=== PATIENT | female | born 1990 | race Caucasian/White ===

== ENCOUNTER 2025-03-12 04:57 | Emergency (ER) | payer OTHER, SELFPAY ==
--- OUTSIDE RECORDS SUMMARY | 2025-03-03 08:30 | XMS_ITS | Encounter Summary ---
Author Organization [facility] Address [address] [place] [address] Care Team Providers Care Supervisor Testing Name Role Phone Meenakshi Brooks MD Primary Care Provider [phone] Encounter Details DateTypeDepartmentCare Team (Latest Contact Info)Angcwhflwip75/15/2025 8:30 AM EDTRoutine PRECIOUS Shamrocklaura WHITAKER [facility] [place] [address] Yenni Vazquez CNM [address] [place], [place] [phone] Encounter for supervision of other normal , second trimester ([facility]) (Primary Dx); Hx of Pb thyroiditis; History of section; History of in vitro fertilization Social History Tobacco UseTypesPacks/DayYears UsedDateSmoking Tobacco: NeverSmokeless Tobacco: NeverAlcohol UseStandard Drinks/WeekCommentsNot Currently0 (1 standard drink = 0.6 oz pure alcohol)Estimated Date of BanywllxYtvmhnqzVto83/21/2026ased on UltrasoundSex and Gender InformationValueDate RecordedSex Assigned at Mvvhbv0809/11/2023 1:30 AM EDTLegal MydKslqbv96/15/2023 7:00 PM EDTGender Identity Xjpmbc3509/11/2023 1:30 AM EDTSexual OrientationNot on filedocumented as of this encounter Last Filed Vital Signs Vital SignReadingTime TakenCommentsBlood Xflwvevk169/7003/03/2025 8:28 AM EDT Pulse--Temperature--Respiratory Rate--Oxygen Saturation--Inhaled Oxygen Concentration--Pqbsnz339 kg (234 lb)03/03/2025 8:28 AM EDTHeight--Body Mass Index43.85008/02/2022 12:00 PM EDTdocumented in this encounter Progress Notes * Yenni Vazquez CNM - 03/03/2025 8:30 AM EDT Subjective No chief complaint on file. Josephine Navarrete is a 34 y.o. at 17w4d with a working estimated date of delivery of 08/07/2025, by Ultrasound who presents for a routine visit. She denies vaginal bleeding, leakage of fluid, decreased movements, or contractions. OB History Para Term AB Living 2 1 1 1 SAB IAB Ectopic Multiple Live Births 1 # Outcome Date GA Lbr Justin/2nd Weight Sex Type Anes PTL Lv 2 Current 1 Term 02/03/18 39w2d 6 lb 14.3 oz M CS-LTranv EPI N ALBERTO Complications: Dysfunctional Labor, Intolerance, heart rate decelerations affecting management of mother ([facility]) Her is complicated by: Herpes, pb's, IVF Thyroid, taking levothyroxine 125 mcg The following portions of the chart were reviewed this encounter and updated as appropriate: Objective Physical Exam Weight: 234 lb Expected Total Weight Gain: 11 lb-19 lb Pregravid BMI: 44.03 BP: 110/70 Urine protein-negative Urine glucose-negative Labs: reviewed Imaging Assessment/Plan Diagnoses and all orders for this visit: Encounter for supervision of other normal , second trimester ([facility]) Hx of Pb thyroiditis - TSH W/REFLEX TO FT4; Future History of section History of in vitro fertilization Continue vitamin. Labs reviewed. Rhogam not needed, patient is A+ positive GTT at 28 weeks Follow up in 4 weeks for a routine visit. Patient has appt with M on 03/23/25 for thyroidand IVF related documented in this encounter Plan of Treatment DateTypeDepartmentCare Team (Latest Contact Info)Gqqtxdnvlml56/12/2025 8:45 AM ESTRoutine [facility] OBM[facility] [address] [place] [address] Yenni Vazquez, CNM [address] [place] [address] documented as of this encounter Goals GoalPatient Goal TypeAssociated ProblemsRecent ProgressPatient-Stated?Author Reminders Care PlanOB RemindersNoOpen Scheduling, Backgrounddocumented as of this encounter Procedures Procedure NamePriorityDate/TimeAssociated DiagnosisCommentsTSH W/REFLEX TO FT4 Sdwujrb7603/03/2025 8:51 AM EDT Hx of Pb thyroiditis documented in this encounter Results * TSH W/REFLEX TO FT4 (03/03/2025 8:51 AM EDT)ComponentValueRef RangeTest Method Analysis TimePerformed AtPathologist SignatureTSH W/REFLEX TO FT41.02mIU/L QUESTComment: ?Reference Range ? > or = 20 Years 0.40-4.50 ? Ranges ?First trimester ?0.26-2.66 ?Second trimester ?? 0.55-2.73 ?Third trimester ?0.43-2.91 Specimen (Source)Anatomical Location / LateralityCollection Method / Volume Collection TimeReceived Time03/03/2025 8:51 AM EDT1 3:39 PM EDT Narrative Resulting Agency Comment Performing Organization Information ?Site ID: QPT ?Name: [facility] ?Address: [address] [place] [address], [address] [place] [id number] ?Director: Jose Raul Villa MD Authorizing ProviderResult TypeResult StatusValegayla Vazquez CNMLAB BLOOD ORDERABLESFinal ResultPerforming OrganizationAddressCity/State/ZIP CodePhone Number QUEST documented in this encounter Visit Diagnoses Diagnosis Encounter for supervision of other normal , second trimester ([facility])- Primary Hx of Pb thyroiditis History of section Other postprocedural status History of in vitro fertilization documented in this encounter Additional Health Concerns Active ProblemsNoted DateDiagnosed DateOB Ieyfotnim56/20/2025 documented as of this encounter Care Teams Team MemberRelationshipSpecialtyStart DateEnd Date Meenakshi Brooks MD [address] [place] [address] PCP - GeneralFamily Medicine09/25/22documented as of this encounter
[2025-03-12 05:01] VITALS: BP 139/80; PULSE 74; TEMP 36.6; O2SAT 100; BMI 42.1
--- NOTE | 2025-03-12 05:17 | ED_ITS ---
HPI - URI/Sore Throat General Chief Complaint: Upper Respiratory Infection Stated Complaint: 19 WKS ; SHORTNESS OF BREATH, WHEEZING Time Seen by Provider: 03/12/25 05:00 Source: patient Limitations: no limitations History of Present Illness HPI Narrative: 34-year-old female, non-smoker who is 19 weeks presents for evaluation of cough, wheezing, shortness of breath and loss of her voice. Symptoms started 3 days ago. She is not having any chest pain but is mildly short of breath. She denies any abdominal pain or vaginal bleeding. She does not have any lower extremity pain or swelling. Her son had similar symptoms several days ago and she believes she contracted this from him. She took a Tylenol around 1 AM. She has not had any fever. She does not smoke. Related Data Allergies Allergy/AdvReac Type Severity Reaction Status Date / Time amoxicillin Allergy Mild Hives Verified 03/12/25 05:05 Review of Systems ROS Status of ROS 10 or more systems reviewed and unremark able except as noted in history and below PFSH PFSH Social History Little interest or pleasure in doing things: not at all Feeling down, depressed, or hopeless: not at all Exam Narrative Exam Narrative: Vital signs and Nursing Notes reviewed: Afebrile with a normal pulse, normal blood pressure, she is not hypoxic with pulse ox of 100% on room air General: Awake, alert, oriented, hoarse voice, no respiratory distress HEENT: Normocephalic atraumatic, mucous membranes are moist and pink, eyes are clear, normal conjunctiva, vision is grossly intact, posterior pharynx is normal in appearance. Voice is hoarse Neck: Supple, no stridor Chest: Lungs are clear to auscultation with good air entry, there is no wheezing rhonchi or rales appreciated no accessory muscle use, patient is speaking in complete sentences-no chest wall tenderness to palpation CVS: Regular rate and rhythm S1-S2, no murmurs rubs or gallops, pulses are brisk and equal bilaterally Extremities: Moving all extremities, no lower extremity tenderness or swelling noted, negative Homans' sign, pulses are brisk and equal bilaterally Skin: Normal in appearance without rash,pallor, petechiae or purpura Neuro: No focal deficits Constitutional Vital Signs, click to edit/add: Last Vital Signs Temp 97.9 F 03/12/25 05:01 Pulse 72 03/12/25 05:32 Resp 20 03/12/25 05:32 BP 139/80 03/12/25 05:01 Pulse Ox 99 03/12/25 05:32 O2 Del Method Room Air 03/12/25 05:32 Course Vital Signs Vital signs: Vital Signs Temperature 97.9 F 03/12/25 05:01 Pulse Rate 74 03/12/25 05:01 Respiratory Rate 18 03/12/25 05:01 Blood Pressure 139/80 03/12/25 05:01 Pulse Oximetry 100 03/12/25 05:01 Oxygen Delivery Method Room Air 03/12/25 05:01 Temperature 97.9 F 03/12/25 05:01 Pulse Rate 72 03/12/25 05:32 Respiratory Rate 20 03/12/25 05:32 Blood Pressure 139/80 03/12/25 05:01 Pulse Oximetry 99 03/12/25 05:32 Oxygen Delivery Method Room Air 03/12/25 05:32 MDM - URI/Sore Throat MDM Narrative Medical decision making narrative: 34-year-old female who is 19 weeks presents for evaluation of 3 days of cough, nasal congestion voice. She has some degree of a sore throat. She feels that she is wheezing but her lungs are clear. She has not had a fever. Her son had similar symptoms earlier in the week. She is not having any abdominal pain or vaginal bleeding. She has normal heart tones. She was given a breathing treatment and Tylenol. COVID 19 testing is negative. The patient is feeling somewhat better and her voice is improved after a period in the ER and a breathing treatment. She will be discharged home with a prescription for albuterol MDI and a note for work for the next several days. She was encouraged to drink plenty of fluids, use Tylenol as needed for fever and discomfort and return to the emergency department for worsening symptoms or any concerns. I explained to her the antibiotics are not indicated and her cough may last several weeks. Lab Data Labs: Lab Results 03/12/25 Range/Units 06:11 SARS-CoV-2 Ag (CV2AG) Negative (NEGATIVE) Discharge Plan Discharge Chief Complaint: Upper Respiratory Infection Clinical Impression: Upper respiratory infection Patient Disposition: Home, Self-Care Time of Disposition Decision: 06:39 Condition: Good Print Language: Romansh Instructions: Upper Respiratory Infection (ED) Referrals: CALIXTO FUENTES [Primary Care Provider, Family Practice] - 1 week
[2025-03-12] MEDS: ACETAMINOPHEN 325 MG TABLET 650 MG PO (05:23)
[2025-03-12 05:32] VITALS: PULSE 72; O2SAT 99
[2025-03-12] MEDS: IPRATROPIUM/ALBUTEROL SULFATE 3 ML AMPUL.NEB IH (05:32)
--- OUTSIDE RECORDS SUMMARY | 2025-03-12 05:50 | XMS_ITS | Encounter Summary ---
Author Organization [facility] Address [address] [facility] [place] [address] Care Team Providers Care Biomedical Engineering Technician Name Role Phone Meenakshi Brooks MD Primary Care Provider [phone] Encounter Details DateTypeDepartmentCare Team (Latest Contact Info)Tbedxvhxcsv99/15/2025amboo flowsheet PRECIOUS WHITAKER [address] [place] [address] Yenni Vazquez CNM [address] [place], [place] [phone] Social History Tobacco UseTypesPacks/DayYears UsedDateSmoking Tobacco: NeverSmokeless Tobacco: NeverAlcohol UseStandard Drinks/WeekCommentsNot Currently0 (1 standard drink = 0.6 oz pure alcohol)Estimated Date of InenwhmjIqmmvburUrk27/21/2026Based on UltrasoundSex and Gender InformationValueDate RecordedSex Assigned at Zklfrk6209/11/2023 1:30 AM EDTLegal JmeQwjcsv56/15/2023 7:00 PM EDTGender Identity Tadxew6109/11/2023 1:30 AM EDTSexual OrientationNot on filedocumented as of this encounter Plan of Treatment DateTypeDepartmentCare Team (Latest Contact Info)Bbkzuctwppk65/12/2025 8:45 AM ESTRoutine PRECIOUS [facility] [address] [place] [address] Yenni Vazquez CNM [address] [place], [place] [phone] documented as of this encounter Goals GoalPatient Goal TypeAssociated ProblemsRecent ProgressPatient-Stated?Author Reminders Care PlanOB RemindersNoOpen Scheduling, Backgrounddocumented as of this encounter Visit Diagnoses Not on filedocumented in this encounter Additional Health Concerns Active ProblemsNoted DateDiagnosed DateOB Xevamubxx48/20/2025 documented as of this encounter Care Teams Team MemberRelationshipSpecialtyStart DateEnd Date Meenakshi Brooks MD [address] [place] [address] PCP - GeneralFamily Medicine09/25/22documented as of this encounter
--- OUTSIDE RECORDS SUMMARY | 2025-03-12 05:50 | XMS_ITS | Encounter Summary ---
Author Organization [facility] Address [address] [place] [address] Care Team Providers Care Game Programmer Name Role Phone Meenakshi Brooks MD Primary Care Provider [phone] Encounter Details DateTypeDepartmentCare Team (Latest Contact Info)Ulsmosqmshs29/14/2025Travel Social History Tobacco UseTypesPacks/DayYears UsedDateSmoking Tobacco: NeverSmokeless Tobacco: NeverAlcohol UseStandard Drinks/WeekCommentsNot Currently0 (1 standard drink = 0.6 oz pure alcohol)Estimated Date of CdvmeegnIpsiwywoNwn93/21/2026ased on UltrasoundSex and Gender InformationValueDate RecordedSex Assigned at Jwzlkq7409/11/2023 1:30 AM EDTLegal PlrXpiuog28/15/2023 7:00 PM EDTGender Identity Gqbons6409/11/2023 1:30 AM EDTSexual OrientationNot on filedocumented as of this encounter Plan of Treatment DateTypeDepartmentCare Team (Latest Contact Info)Bartguovtyc80/12/2025 8:45 AM ESTRoutine [facility] [address] [place] [phone] Yenni Vazquez CNM [address] [place] [address] documented as of this encounter Goals GoalPatient Goal TypeAssociated ProblemsRecent ProgressPatient-Stated?Author Reminders Care PlanOB RemindersNoOpen Scheduling, Backgrounddocumented as of this encounter Visit Diagnoses Not on filedocumented in this encounter Additional Health Concerns Active ProblemsNoted DateDiagnosed DateOB Quodsqhio77/20/2025 documented as of this encounter Care Teams Team MemberRelationshipSpecialtyStart DateEnd Date Meenakshi Brooks MD [address] [place] [address] PCP - GeneralFamily Medicine09/25/22documented as of this encounter
--- OUTSIDE RECORDS SUMMARY | 2025-03-12 05:50 | XMS_ITS | Clinical Summary ---
Author Organization [facility] Address [address], [address] [place] [address] Care Team Providers Care Cloth Bleaching Supervisor Name Role Phone Meenakshi Mulligan MD Primary Care Pr ovider Allergies Active AllergyReactionsCriticalityNoted GqlyKijkflnvZjqvzsuilzxPudqZez74/16/2018 Medications MedicationSigDispense QuantityRefillsLast FilledStart DateEnd DateStatus Ibmlcllh-Srp-Il-FA ( VITAMINS PO) Indications:gummyTake by mouth dailyActive calcium carbonate (TUMS) 500 MG chewable tablet Take 1 tablet by mouth as needed for HeartburnActive acetaminophen (TYLENOL) 325 MG tablet Take 2 tablets by mouth every 4 hours as needed for Pain 120 tablet Active docusate sodium (COLACE, DULCOLAX) 100 MG CAPS Take 100 mg by mouth 2 times daily 60 capsule Active lanolin ointment Apply topically as needed. 1 Tube Active ibuprofen (ADVIL;MOTRIN) 600 MG tablet Take 1 tablet by mouth every 6 hours as needed for Pain 120 tablet Active Active Problems Patient Care Coordination No te Formatting of this note migh t be different from the original. Repeat c/s on 08/03/2025 at 7:[address] Albrecht and June Vazquez to assist PAT on admission Does pt have history of delivery before 37 weeks: Previous c/s: testing: Ped: Blood type: Rhogam: Flu shot: TDAP (27-36 wks): GBS: GTT: GC/CT: 30 week Growth: MRSA: Placenta Location: ProblemNoted DateDiagnosed DateTerm ztuyddtuz06/09/2018Failure to progress in labor Resolved Problems ProblemNoted DateDiagnosed DateResolved SwpiMpvywlbqxzs10 Encounters DateTypeDepartmentCare BqyhXzfpngfdftq84/15/2025Telephone [facility] Gyne[facility] [address], [address] [place] [address] Kimberlee Villalobos RN Scheduled C-sectionfrom Last 3 Months Family History Medical HistoryRelationNameCommentsHigh Blood PressureFatherOtherFatherOther Maternal AuntHigh Blood PressureMaternal GrandfatherOtherOther 1husbandHigh Blood PressureOther 2Paternal fatherCancerPaternal GrandfatherOtherPaternal GrandfatherRelationNameStatusCommentsFatherthyroidMaternal AuntthyroidMaternal GrandfatherOther 1husbandAliveseizuresOther 2Paternal fatherAlivePaternal Grandfatherthroat cancer Social History Tobacco UseTypesPacks/DayYears UsedDateSmoking Tobacco: NeverSmokeless Tobacco: NeverAlcohol UseStandard Drinks/WeekCommentsNo0 (1 standard drink = 0.6 oz pure alcohol)social drinker before pregnancyCommentsNoSex and Gender InformationValueDate RecordedSex Assigned at BirthNot on fileLegal SexFemale 12/23/2017 10:13 PM EDTGender IdentityNot on fileSexual OrientationNot on file Last Filed Vital Signs Vital SignReadingTime TakenCommentsBlood Qxkxzbdg476/6909 7:25 AM EDT Pnipl8492 7:25 AM MZIQhckoabnevr25.7 ??C (98.1 ??F)02/06/2018 7:25 AM EDTRespiratory Ocdf3092 7:25 AM EDTOxygen Degvkglwfw52%02/05/2018 11:00 AM EDTInhaled Oxygen Concentration--Powrin984.2 kg (232 lb)02/02/2018 2:33 PM HNBFydoyr490.9 cm (5' 1 )02/02/2018 2:33 PM EDTBody Mass Index43.8402/02/2018 2:33 PM EDT Plan of Treatment DateTypeDepartmentCare Team (Latest Contact Info)Vkvjrpihuvn83/17/2026 7:30 AM EDTHospital Encounter [facility] [address] [place] [address] Yolanad Olvera, DO [address] [place] [address] [address] [place] [address] 08/03/2025 7:30 AM EDT - 08/03/2025 8:52 AM EDTSurgery [facility] Delivery [address] [place] [address] Yolanda Olvera, DO [address] [place] [address] [address] [place] [address] SECTIONNamePriorityAssociated DiagnosesDate/TimeCESAREAN SECTION S/P repeat low transverse 08/03/2025 7:30 AM EDT Insurance Advance Directives * Full Code (Latest Code Status on File) Date ActivatedDate InactivatedComments02/03/2018 10:51 PM02/06/2018 4:48 PM * Full Code Date ActivatedDate InactivatedComments02/03/2018 7:59 PM02/03/2018 10:51 PM * Full Code Date ActivatedDate InactivatedComments02/02/2018 9:36 PM02/03/2018 7:59 PM * Full Code Date ActivatedDate InactivatedComments02/02/2018 5:56 PM02/02/2018 9:36 PM * Full Code Date ActivatedDate InactivatedComments02/02/2018 2:46 PM02/02/2018 5:56 PM Care Teams Team MemberRelationshipSpecialtyStart DateEnd Date Meenakshi Mulligan MD [address] [place] [address] [facility] - [facility]12/24/17
--- OUTSIDE RECORDS SUMMARY | 2025-03-12 05:50 | XMS_ITS | Clinical Summary ---
Author Organization [facility] Address [address] [place] [address] Phone Care Team Providers Care Director Of Managed Care Name Role Phone Kaycee Villavicencio RN Unavailable Unavailable Allergies Active AllergyReactionsCriticalityNoted DateCommentsAmoxicillinHivesLow 09/06/2023 Medications MedicationSigDispense QuantityRefillsLast FilledStart DateEnd DateStatus no115/iron/folic acid ( 19 ORAL) Take by mouth.Active metFORMIN XR (Glucophage-XR) 750 mg 24 hr tablet Indications:Insulin resistanceTake 1 tablet (750 mg) by mouth once daily with breakfast. Do not crush, chew, or split. 30 tablet 11005/26/723068/6Active leuprolide (Lupron) 1 mg/0.2 mL injection Indications:Female infertilityUsing an insulin syringe, draw up 80 units and inject under the skin as a one time dose, as directed per provider for trigger. 1 kit 5Active Additional Information Patient not taking.Reported on 10/22/2024 syringe, disposable, (BD Safety-Esther with Luer-Esther) 3 mL syringe Indications:Female infertilityUse as directed to mix and administer HCG trigger 1 each 5Active Additional Information Patient not taking.Reported on 10/22/2024 estradiol (Estrace) 2 mg tablet Indications:Female infertilityTake 3 tablets (6 mg) by mouth once daily. 90 tablet /6Active progesterone 50 mg/mL injection Indications:Female infertilityInject 1.5 mL (75 mg) into the muscle once daily. Inject into the muscle at the same time each morning as directed per provider. 50 mL 3:01 PM EDTctive lidocaine-prilocaine (Emla) 2.5-2.5 % cream Indications:Female infertilityApply topically once daily. Apply to treatment area 1 hour prior to injection. 30 g 3:01 PM EDTctive levothyroxine (Synthroid, Levoxyl) 125 mcg tablet Indications:Hypothyroidism, unspecified typeTake 1 tablet (125 mcg) by mouth once daily. Take on an empty stomach at the same time each day, either 30 to 60 minutes prior to breakfast 30 tablet ctive Active Problems ProblemNoted DateDiagnosed DateClass 3 severe obesity without serious comorbidity in adult10/02/2023CommentsYes Encounters DateTypeDepartmentCare RttvKxckvmefyuc99/14/2025 11:00 PM [place] [address] 12/31/2024Specialty Pharmacy [facility] [address] [place] [phone] Meg Drake Refill Coordination Outreach (1 time occurrence) - lidocaine/prilocaine (Emla), progesterone for Fertility Core12/30/2024[place] [address] Hypothyroidism, unspecified type12/17/2024 2:00 PM [place]ff[place] [address] Glory Hilliard, BLACK LEATHER BUFFER-MACHINIST MATE Encounter to determine viability of , single or unspecified fetus (Primary Dx)12/17/2024 1:30 PM EDTAncillary [place] [address] Encounter to determine viability of , single or unspecified fetus 12/17/20243771Nfivue14/27/2025Travelfrom Last 3 Months Family History Medical HistoryRelationNameCommentsHypertensionFatherMiscarriages / Stillbirths Maternal GrandmotherGayleHypertensionMotherKarenMiscarriages / StillbirthsMother KarenSkin cancerMotherKarenHypertensionPaternal GrandmotherRelationNameStatus CommentsFatherMaternal GrandmotherGayleAliveMotherKarenAlivePaternal Grandmother Social History Tobacco UseTypesPacks/DayYears UsedDateSmoking Tobacco: NeverPassive Smoke Exposure: NeverSmokeless Tobacco: Never Tobacco Cessation:Counseling Given: Not Answered Alcohol UseStandard Drinks/WeekCommentsNot Currently0 (1 standard drink = 0.6 oz pure alcohol)PHQ-2AnswerDate RecordedPatient Health Questionnaire-2 Score0 07/27/2024CommentsYesSex and Gender InformationValueDate RecordedSex Assigned at BguqpDeoohx43/17/2024 1:46 PM EDTLegal NakLmbkwq51/15/2023 1:48 PM ESTGender IkayjtwcBszbek24/17/2024 1:46 PM EDTSexual OrientationStraight 09/04/2023 1:46 PM EDT Last Filed Vital Signs Vital SignReadingTime TakenCommentsBlood Iiplpbeo803/78010/22/2024 10:20 AM EDT Xbjug267610/22/2024 10:20 AM CSIMglbqaalhzb48.4 ??C (97.5 ??F)10/22/2024 9:35 AM EDTRespiratory Azjc225810/22/2024 10:20 AM EDTOxygen Ncjznyojmx395%10/22/2024 10:20 AM EDTInhaled Oxygen Concentration--Tucpzp917 kg (236 lb 15.9 oz) 10/22/2024 7:25 AM ENFMsnqgu264.5 cm (5' 2 )10/22/2024 7:25 AM EDTBody Mass Index43.35010/22/2024 7:25 AM EDT Plan of Treatment Health MaintenanceDue DateLast DoneCommentsYearly Adult Lzckygtg1991COVID- 19 Vaccine (#1)1996Cervical Cancer Pjlqnhqde71/21/2012HPV/Uscxmc2205/09/2012 Pap Smear2012Influenza Vaccine (#1)509/, 03/01/2020, 02/22/2016TSH Level608/, 12/01/2024, 06/29/2024, Additional history existsDTaP/Tdap/Td Vaccines (8 - Td or Tdap), 02/09/2009, 12/10/1996, Additional history existsLipid Panel/11/2023 Zoster Vaccines (1 of 2)1RSV High Risk: (Elderly (60+) or Population) (1 - 1-dose 75+ series)2066HIB XaiikywbRwqdpsmqa78/29/1993, 02/04/1992, 1991, Additional history existsHepatitis B VaccinesCompleted 08/22/1995, 07/23/1994, 06/05/1993IPV NelfebymDuldzrkea15/24/1997, 09/15/1992, 1991, Additional history existsHPV QdpnuondTqpmknadn67/30/2008, 10/23/2007, 08/14/2007Meningococcal YejxjywZvrtqtetn63/23/2009MMR Vaccines Spwwwotis32/10/2024, 12/10/1996, 09/15/1992HIV DobnpnhqbSnkbtvstd80/14/2025, 09/24/2023Hepatitis C RxsskzftoDfgkwrlof14/14/2025, 09/24/2023Hepatitis A VaccinesAged OutNo longer eligible based on patient's age to complete this topic Pneumococcal Vaccine: Pediatrics and At-Risk Adult PatientsAged OutNo longer eligible based on patient's age to complete this topicRotavirus VaccinesAged Out No longer eligible based on patient's age to complete this topic Procedures Procedure NamePriorityDate/TimeAssociated DiagnosisCommentsTSH WITH REFLEX TO FREE T4 IF JFGMSMFCTyuociu39/13/2025 8:12 AM EDT Hypothyroidism, unspecified type US OB GZTZTZGDJPBALhvrqvq41/ 1:52 PM EDT Encounter to determine viability of , single or unspecified fetus HEPATITIS C DPCWDLDEPwwjtzn43/14/2025 12:07 PM EDT Screening for STDs (sexually transmitted diseases) HIV 1/2 ANTIGEN/ANTIBODY SCREEN WIH REFLEX TO QMIMZPKEHKVKXstaskw83/14/2025 12:07 PM EDT Screening for STDs (sexually transmitted diseases) LIPID FWZDKFnynuos53/07/2024 2:35 PM EDT Class 3 severe obesity without serious comorbidity in adult, unspecified BMI, unspecified obesity type (Multi) from Last 3 Months or Most Recently Relevant to Health Maintenance Results * TSH with reflex to Free T4 if abnormal (12/30/2024 8:12 AM EDT)ComponentValue Ref RangeTest MethodAnalysis TimePerformed AtPathologist SignatureTS W/REFLEX TO FT41.56mIU/LQuest [facility] HospitalComment: ?Reference Range ? > or = 20 Years 0.40-4.50 ? Ranges ?First trimester ?0.26-2.66 ?Second trimester ?? 0.55-2.73 ?Third trimester ?0.43-2.91 Specimen (Source)Anatomical Location / LateralityCollection Method / Volume Collection TimeReceived TimeBloodVenous blood specimen / Ivugjnj1212/30/2024 8:12 AM EDT12/30/2024 8:12 AM EDT Narrative [facility]NowW[facility] - 12/30/2024 10:56 PM EDT FASTING:UNKNOWN FASTING: UNKNOWN Authorizing ProviderResult TypeResult StatusRacheerasmo LINO BLOOD ORDERABLESFinal ResultPerforming OrganizationAddressCity/State/ZIP CodePhone Number [facility] [address], [address] [place] [address] * US OB transvaginal (12/17/2024 1:52 PM EDT)Anatomical RegionLateralityModality BodyUltrasoundStudy GAStudy DateStudy EDDWorking TIANNA (Source)Specimen (Source) Anatomical Location / LateralityCollection Method / VolumeCollection Time Received Time12/17/2024 1:24 PM EDT12/17/2024 1:24 PM EDT Narrative 12/17/2024 1:58 PM EDT Interpreted by: Elvia Wick Indication ======== Confirm Gestational Age ========= Valdovinos . Number of embryos: 1 Dating ====== Conception: IVF Embryo Transfer Embryo transfer on: 11/19/2024 IVF / ET 5 d GA by IVF / ET 6 w + 5 d TIANNA by IVF / ET: 08/07/2025 GA by prior assessment 6 w + 5 d TIANNA by prior assessment: 08/07/2025 Ultrasound examination on: 12/17/2024 GA by U/S based upon: CRL GA by U/S 6 w + 5 d TIANNA by U/S: 08/07/2025 Assigned: based on the IVF / ET date, selected on 12/17/2024 Assigned GA 6 w + 5 d Assigned TIANNA: 08/07/2025 Impression ========= Early single intrauterine with cardiac activity present. Size is consistent with dating provided. Follow-up ======== Plan: Release to OB Provider Assessment Gestational sac: visualized Location: intrauterine Yolk sac: visualized YS 2.9 mm -/- 6% Papaioannou Embryo: visualized CRL 5.9 mm 6w 5d 45% Pexsters Cardiac activity: present FHR 114 bpm Placenta: circumferential Maternal Structures Uterus / Cervix Uterus: Visualized Uterus position: anteverted Cervix: Visualized Ovaries / Tubes / Adnexa Rt ovary: Visualized Rt ovary details: Normal Rt ovary D1 20.7 mm Rt ovary D2 15.3 mm Rt ovary D3 13.6 mm Rt ovary Vol 2.3 cm? Lt ovary: Visualized Lt ovary details: Normal Lt ovary D1 33.4 mm Lt ovary D2 17.5 mm Lt ovary D3 14.0 mm Lt ovary Vol 4.3 cm? Cul de Sac / Bladder / Kidneys / Other Cul de Sac: Visualized Free fluid: No free fluid visualized Method ====== Transvaginal assessment was indicated due to increased accuracy of transvaginal evaluation for early dating. View: Sufficient Procedure Note Elvia Wick MD - 12/17/2024 Interpreted by: Elvia Wick Indication ======== Confirm Gestational Age ========= Valdovinos . Number of embryos: 1 Dating ====== Conception:IVF Embryo Transfer Embryo transfer on:11/19/2024 IVF / ET5 d GA by IVF / ET6 w + 5 d TIANNA by IVF / ET:08/07/2025 GA by prior assessment6 w + 5 d TIANNA by prior assessment:08/07/2025 Ultrasound examination on:12/17/2024 GA by U/S based upon:CRL GA by U/S6 w + 5 d TIANNA by U/S:08/07/2025 Assigned:based on the IVF / ET date, selected on 12/17/2024 Assigned GA6 w + 5 d Assigned TIANNA:08/07/2025 Impression ========= Early single intrauterine with cardiac activity present. Size is consistent with dating provided. Follow-up ======== Plan: Release to OB Provider Assessment Gestational sac:visualized Location:intrauterine Yolk sac:visualized YS2.9 mm-/- 6% Papaioannou Embryo:visualized CRL5.9 mm6w 5d 45% Pexsters Cardiac activity:present WPZ709 bpm Placenta:circumferential Maternal Structures Uterus / Cervix Uterus:Visualized Uterus position:anteverted Cervix:Visualized Ovaries / Tubes / Adnexa Rt ovary:Visualized Rt ovary details:Normal Rt ovary D120.7 mm Rt ovary D215.3 mm Rt ovary D313.6 mm Rt ovary Vol2.3 cm? Lt ovary:Visualized Lt ovary details:Normal Lt ovary D133.4 mm Lt ovary D217.5 mm Lt ovary D314.0 mm Lt ovary Vol4.3 cm? Cul de Sac / Bladder / Kidneys / Other Cul de Sac:Visualized Free fluid:No free fluid visualized Method ====== Transvaginal assessment was indicated due to increased accuracy oftransvaginal evaluation for early dating. View: Sufficient Authorizing ProviderResult TypeResult StatusDaklaus Hilliard BLACK LEATHER BUFFER-CNPIMG OB US PROCEDURESFinal Result * Hepatitis C Antibody (09/30/2024 12:07 PM EDT)ComponentValueRef RangeTest MethodAnalysis TimePerformed AtPathologist SignatureHEPATITIS C ANTIBODY DAE-PYAIELMQYGR-PHFLRRKZCozxuPennsylvania HospitalComment: HCV antibody was non-reactive. There is no laboratory evidence of HCV infection. In most cases, no further action is required. However, if recent HCV exposure is suspected, a test for HCV RNA (test code 75469) is suggested. For additional information please refer to http://education.[employer]/faq/HAM35h3 (This link is being provided for informational/ educational purposes only.) Specimen (Source)Anatomical Location / LateralityCollection Method / Volume Collection TimeReceived TimeBloodVenous blood specimen / Yxskmjp3209/30/2024 12:07 PM EDT09/30/2024 12:07 PM EDT Narrative [facility] - 10/04/2024 2:13 PM EDT FASTING:NO FASTING: NO Authorizing ProviderResult TypeResult StatusMayi Ding BLACK LEATHER BUFFER-CNPLAB BLOOD ORDERABLESFinal ResultPerforming OrganizationAddressCity/State/ZIP CodePhone Number [facility] [address], [address] [place] [address] * HIV 1/2 Antigen/Antibody Screen with Reflex to Confirmation (09/30/2024 12:07 PM EDT)ComponentValueRef RangeTest MethodAnalysis TimePerformed AtPathologist SignatureHIV AG/AB, 4TH SUPPKG-HAVYJZTUOCH-AEHQPJASRnzws [facility] HospitalComment: HIV-1 antigen and HIV-1/HIV-2 antibodies were not detected. There is no laboratory evidence of HIV infection. PLEASE NOTE: This information has been disclosed to you from records whose confidentiality may be protected by state law. ??If your state requires such protection, then the state law prohibits you from making any further disclosure of the information without the specific written consent of the person to whom it pertains, or as otherwise permitted by law. A general authorization for the release of medical or other information is NOT sufficient for this purpose. ?? For additional information please refer to http://education.[employer]/faq/TWS858 (This link is being provided for informational/ educational purposes only.) The performance of this assay has not been clinically validated in patients less than 2 years old. Specimen (Source)Anatomical Location / LateralityCollection Method / Volume Collection TimeReceived TimeBloodVenous blood specimen / Fjupyko8309/30/2024 12:07 PM EDT09/30/2024 12:07 PM EDT Narrative [facility] - 10/04/2024 2:13 PM EDT FASTING:NO FASTING: NO Authorizing ProviderResult TypeResult StatusMayi Ding [facility] BLOOD ORDERABLESFinal ResultPerforming OrganizationAddressCity/State/ZIP CodePhone Number [facility]NowW[facility] [employer] [facility] [address], [address] [place] [address] * (ABNORMAL) Lipid Panel (09/24/2023 2:35 PM EDT)ComponentValueRef RangeTest MethodAnalysis TimePerformed AtPathologist LlyntqsbwAxdywtmbgns3679 - 199 mg/dL LAB CHEMISTRY METHOD 09/24/2023 3:59 PM [facility]Comment: ?Age ?Desirable ?? Borderline High ?? High 0-19 Y 0 - 169 170 - 199 >/= 200 20-24 Y 0 - 189 190 - 224 >/= 225 >24 Y 0 - 199 200 - 239 >/= 240 All ranges are based on fasting samples. Specific therapeutic targets will vary based on patient-specific cardiac risk. Pediatric guidelines reference:Pediatrics 2011, 128(S5).Adult guidelines reference: NCEP ATPIII Guidelines,JEANNE 2001, 258:2486-97 Venipuncture immediately after or during the administration of Metamizole may lead to falsely low results. Testing should be performed immediately prior to Metamizole dosing. HDL-Akzkacrolhi21.8mg/dL LAB CHEMISTRY METHOD 09/24/2023 3:59 PM [facility] LABComment: Age ? Very Low ?? Low ? Normal ?High ?? 0-19 Y < 35 < 40 40-45 ---- 20-24 Y ---- < 40 >45 ---- >24 Y ---- < 40 40-60 >60 Cholesterol/HDL Ratio3.2 LAB CHEMISTRY METHOD 09/24/2023 3:59 PM [facility]Comment: Ref Values Desirable < 3.4 High Risk > 5.0 LDL Rhyvliogzt042(H)<=99 mg/dL LAB CHEMISTRY METHOD 09/24/2023 3:59 PM [facility]Comment: ?Near ?? Borderline ?AGE ?Desirable ??Optimal ?High ? High ? Very High 0-19 Y 0 - 109 --- 110-129 >/= 130 ---- 20-24 Y 0 - 119 --- 120-159 >/= 160 ---- >24 Y 0 - 99 100-129 130-159 160-189 >/=190 KQAJ646 - 40 mg/dL LAB CHEMISTRY METHOD 09/24/2023 3:59 PM [facility] PGQAjgnapwmjjalc480 - 149 mg/dL LAB CHEMISTRY METHOD 09/24/2023 3:59 PM [facility] LABComment: Age ? Desirable ?? Borderline High ?? High ? Very High 0 D-90 D ?19 - 174 ? ---- ? ---- ?---- 91 D- 9 Y 0 - 74 75 - 99 >/= 100 ---- 10-19 Y 0 - 89 90 - 129 >/= 130 ---- 20-24 Y 0 - 114 115 - 149 >/= 150 ---- >24 Y 0 - 149 150 - 199 200- 499 >/= 500 Venipuncture immediately after or during the administration of Metamizole may lead to falsely low results. Testing should be performed immediately prior to Metamizole dosing. Non HDL Ikusagfunhi6746 - 149 mg/dL LAB CHEMISTRY METHOD 09/24/2023 3:59 PM [facility] LABComment: ?Age ? Desirable ?? Borderline High ?? High ? Very High 0-19 Y 0 - 119 120 - 144 >/= 145 >/= 160 20-24 Y 0 - 149 150 - 189 >/= 190 ---- >24 Y 30 mg/dL above LDL Cholesterol goal Specimen (Source)Anatomical Location / LateralityCollection Method / Volume Collection TimeReceived TimeBloodVenous blood specimen / UnknownVenipuncture / Uqnjskf7609/24/2023 2:35 PM EDT09/24/2023 2:35 PM EDT Narrative Authorizing ProviderResult TypeResult StatusEssie Woo BLACK LEATHER BUFFER-CNPLAB BLOOD ORDERABLESFinal ResultPerforming OrganizationAddressCity/State/ZIP CodePhone Number [facility] [address] [place] [address] from Last 3 Months or Most Recently Relevant to [place] [address] * Guarantor: Elvia NavarreteAccount TypeRelation to PatientDate of BirthPhone Billing [id number] [place] [address] Care Teams Team MemberRelationshipSpecialtyStart DateEnd Kaycee Villavicencio RN Registered NurseReproductive Endocrinology and Infertility07/27/24
--- OUTSIDE RECORDS SUMMARY | 2025-03-12 05:50 | XMS_ITS | Clinical Summary ---
Author Organization [facility] tem Address [id number] [address] [place] [address] Care Team Providers Care Milling Supervisor Name Role Phone Unavailable Primary Care Provider Unavailabl e Allergies Active AllergyReactionsCriticalityNoted GzuiDnpnodmsVtrbxsmoufrBctsu00/18/2025 Medications MedicationSigDispense QuantityRefillsLast FilledStart DateEnd DateStatus valACYclovir (VALTREX) 1000 mg tablet Take 1 tablet (1,000 mg total) by mouth in the morning and 1 tablet (1,000 mg total) before bedtime.Active levothyroxine (SYNTHROID, LEVOTHROID) 125 MCG tablet Take 1 tablet (125 mcg total) by mouth in the morning.Active Encounters DateTypeDepartmentCare SwluJlflrgcfizz54/18/2025Orders Only [facility]aternal- Medicine at [facility] [address] [place] [phone] Ref Prov, Not In System 02/04/2025bstract Maternal- Medicine at [facility] [address] [place] [phone] Stefany Hayes MD from Last 3 Months Family History Medical HistoryRelationNameCommentsAutoimmune diseaseFatherhypothyroid HypertensionFatherRelationNameStatusCommentsFather Social History Tobacco UseTypesPacks/DayYears UsedDateSmoking Tobacco: NeverSmokeless Tobacco: Never Tobacco Cessation:Counseling Given: Not Answered Alcohol UseStandard Drinks/WeekCommentsNot Currently0 (1 standard drink = 0.6 oz pure alcohol)Estimated Date of VplibjaiBuzuxqrmKnj74/17/2026ased on last menstrual period of 10/27/2024Sex and Gender InformationValueDate Recorded Sex Assigned at BirthNot on fileLegal LvnFqfafa35/16/2025 12:26 PM EDTGender IdentityNot on fileSexual OrientationNot on file Plan of Treatment DateTypeDepartmentCare Team (Latest Contact Info)Ghdejfpuaqm30/04/2025 8:45 AM ESTAppointment [facility] [address] [place] [phone] 03/23/2025 10:00 AM ESTOffice Visit Maternal- Medicine at [facility] [address] [place] [phone] Stefany Hayes MD [address] [facility] [address] [place] [address] Health MaintenanceDue DateLast DoneCommentsDepression Vrsvvbzgx01/21/2003Tobacco Rnldwqnia16/21/2003Adult BMI Yxyaoiihw98/21/2009DTaP,Tdap and Td Vaccines (1 - Tdap)2010Pap Smear2012Influenza Scxtyjs9501/18/2025 Medical Devices Not on file Procedures Procedure NamePriorityDate/TimeAssociated DiagnosisCommentsULTRASOUND OFFICE Rtooocg5502/04/2025 12:38 PM EDTULTRASOUND UDAXJEGwvreke56/18/2025 12:36 PM EDT TYPE AND DUMAVYEkwlaer21/20/2025 DRUG SCREEN, IIJSBEnbzkvh15/20/2025 HEMOGLOBIN T3HAnirhyl28/20/2025 HEPATITIS B SURFACE OXFHUCHNltacsj51/20/2025 HEPATITIS C(HCV) ANTIBODY W/REFLEX TO PQWYegllpd18/20/2025 CBC (NO DIFF)Ivrbkxz5901/06/2025 RUBELLA IGG IMMUNE SWCMPIXqahdfn63/20/2025 SYPHILIS TOTAL(UNKNOWN SYPHILIS STATUS)Fabcpuu4901/06/2025 CHLAMYDIA/GC BY PCR THINPREP TTRHYCtqlzlm37/20/2025 from Last 3 Months Results * Ultrasound - Office (02/04/2025 12:38 PM EDT) Only the most recent of2 resultswithin the time period is included. Anatomical RegionLateralityModalityAMBUltrasound Narrative Authorizing ProviderResult TypeResult StatusNot In System Ref ProvIMG US ORDERABLESFinal Result * Chlamydia/GC by PCR ThinPrep fluid (01/06/2025)ComponentValueRef RangeTest MethodAnalysis TimePerformed AtPathologist SignatureChlamydia Dna(Pcr)NEGATIVE MANUALLY TRANSCRIBED RESULTSGonorrhoeae Dna(Pcr)NEGATIVEMANUALLY TRANSCRIBED RESULTS Narrative Authorizing ProviderResult TypeResult StatusNot In System Ref ProvMICROBIOLOGY - GENERAL ORDERABLESFinal ResultPerforming OrganizationAddressCity/State/ZIP Code Phone Number MANUALLY TRANSCRIBED RESULTS * Rubella IGG immune status (01/06/2025)ComponentValueRef RangeTest Method Analysis TimePerformed AtPathologist SignatureRubella immune IgG1.89MANUALLY TRANSCRIBED RESULTSSpecimen (Source)Anatomical Location / LateralityCollection Method / VolumeCollection TimeReceived TimeBloodVenous blood / Unknown Narrative Authorizing ProviderResult TypeResult StatusNot In System Ref ProvLAB BLOOD ORDERABLESFinal ResultPerforming OrganizationAddressCity/State/ZIP CodePhone Number MANUALLY TRANSCRIBED RESULTS * Syphilis Total (Unknown Syphilis Status) (01/06/2025)ComponentValueRef Range Test MethodAnalysis TimePerformed AtPathologist SignatureSyphilisNON-REACTIVE MANUALLY TRANSCRIBED RESULTSSpecimen (Source)Anatomical Location / Laterality Collection Method / VolumeCollection TimeReceived TimeBloodVenous blood / Unknown Narrative Authorizing ProviderResult TypeResult StatusNot In System Ref ProvLAB BLOOD ORDERABLESFinal ResultPerforming OrganizationAddressCity/State/ZIP CodePhone Number MANUALLY TRANSCRIBED RESULTS * Hepatitis C(HCV) Ab w/ Reflex to PCR (01/06/2025)ComponentValueRef RangeTest MethodAnalysis TimePerformed AtPathologist SignatureHepatitis C Antibody NON-REACTIVEMANUALLY TRANSCRIBED RESULTSSpecimen (Source)Anatomical Location / LateralityCollection Method / VolumeCollection TimeReceived TimeBloodVenous blood / Unknown Narrative Authorizing ProviderResult TypeResult StatusNot In System Ref ProvLAB BLOOD ORDERABLESFinal ResultPerforming OrganizationAddressCity/State/ZIP CodePhone Number MANUALLY TRANSCRIBED RESULTS * Drug Screen, Urine (01/06/2025)ComponentValueRef RangeTest MethodAnalysis Time Performed AtPathologist SignatureOpiatesNEGATIVEMANUALLY TRANSCRIBED RESULTS BarbituratesNEGATIVEMANUALLY TRANSCRIBED RESULTSSpecimen (Source)Anatomical Location / LateralityCollection Method / VolumeCollection TimeReceived Time Urine Narrative Authorizing ProviderResult TypeResult StatusNot In System Ref ProvURINE ORDERABLESFinal ResultPerforming OrganizationAddressty/State/ZIP CodePhone Number MANUALLY TRANSCRIBED RESULTS * Hepatitis B surface antigen (01/06/2025)ComponentValueRef RangeTest Method Analysis TimePerformed AtPathologist SignatureHepatitis B Surface Antigen NON-REACTIVEMANUALLY TRANSCRIBED RESULTSSpecimen (Source)Anatomical Location / LateralityCollection Method / VolumeCollection TimeReceived TimeBloodVenous blood / Unknown Narrative Authorizing ProviderResult TypeResult StatusNot In System Ref ProvLAB BLOOD ORDERABLESFinal ResultPerforming OrganizationAddressCity/State/ZIP CodePhone Number MANUALLY TRANSCRIBED RESULTS * CBC without diff (01/06/2025)ComponentValueRef RangeTest MethodAnalysis Time Performed AtPathologist DodzcaethJqlabrqpwx04.8MANUALLY TRANSCRIBED RESULTS Tgggksobim15.1MANUALLY TRANSCRIBED RESULTSRbc Mcv (Fl) By Automated Count90.7 MANUALLY TRANSCRIBED JBFBJGWVcttaxadp352TJCFTMBR TRANSCRIBED RESULTSSpecimen (Source)Anatomical Location / LateralityCollection Method / VolumeCollection TimeReceived TimeBloodVenous blood / Unknown Narrative Authorizing ProviderResult TypeResult StatusNot In System Ref ProvLAB BLOOD ORDERABLESFinal ResultPerforming OrganizationAddressCity/State/ZIP CodePhone Number MANUALLY TRANSCRIBED RESULTS * Type and screen (01/06/2025)ComponentValueRef RangeTest MethodAnalysis Time Performed AtPathologist SignatureAbo/Rh(D)A PositiveMANUALLY TRANSCRIBED RESULTSAntibody ScreenNEGATIVEMANUALLY TRANSCRIBED RESULTSSpecimen (Source) Anatomical Location / LateralityCollection Method / VolumeCollection Time Received TimeBloodVenous blood / Unknown Narrative Authorizing ProviderResult TypeResult StatusNot In System Ref ProvBLOOD BANK TEST ORDERABLESFinal ResultPerforming OrganizationAddressCity/State/ZIP Code Phone Number MANUALLY TRANSCRIBED RESULTS * Hemoglobin A1c (01/06/2025)ComponentValueRef RangeTest MethodAnalysis Time Performed AtPathologist SignatureHemoglobin A1C5.44.0 - 6.0 %MANUALLY TRANSCRIBED RESULTSSpecimen (Source)Anatomical Location / LateralityCollection Method / VolumeCollection TimeReceived TimeBloodVenous blood / Unknown Narrative Authorizing ProviderResult TypeResult StatusIra Freddy SMITHLAB BLOOD ORDERABLES Final ResultPerforming OrganizationAddressCity/State/ZIP CodePhone Number MANUALLY TRANSCRIBED RESULTS from Last 3 Months Insurance
--- OUTSIDE RECORDS SUMMARY | 2025-03-12 05:50 | XMS_ITS | Encounter Summary ---
Author Organization [facility] Address [address], [address] [place] [address] Care Team Providers Care Director Of Health Education Name Role Phone Meenakshi Mulligan MD Primary Care Pr ovider Reason for Visit * ReasonOnset DateCommentsScheduled C-bcfsxem7303/03/2025 Encounter Details DateTypeDepartmentCare Team (Latest Contact Info)Hbdeudtfidw98/15/2025Telephone [facility] [address], [address] [place] [address] Kimberlee Villalobos RN Scheduled Social History Tobacco UseTypesPacks/DayYears UsedDateSmoking Tobacco: NeverSmokeless Tobacco: NeverAlcohol UseStandard Drinks/WeekCommentsNo0 (1 standard drink = 0.6 oz pure alcohol)social drinker before pregnancyCommentsNoSex and Gender InformationValueDate RecordedSex Assigned at BirthNot on fileLegal SexFemale 12/23/2017 10:13 PM EDTGender IdentityNot on fileSexual OrientationNot on file documented as of this encounter Plan of Treatment DateTypeDepartmentCare Team (Latest Contact Info)Augjmwzqrwb49/17/2026 7:30 AM EDTHospital Encounter [facility] [address] [place] [address] Yolanda Olvera, DO [address] [place] [address] 08/03/2025 7:30 AM EDT - 08/03/2025 8:52 AM EDTSurgery [facility] [address] [phone] Yolanda Olvera, [address] [place] [address] SECTIONNamePriorityAssociated DiagnosesDate/TimeCESAREAN SECTION S/P repeat low transverse 08/03/2025 7:30 AM EDTdocumented as of this encounter Visit Diagnoses Not on filedocumented in this encounter Care Teams Team MemberRelationshipSpecialtyStart DateEnd Date Meenakshi Mulligan MD [facility] [phone] PCP - GeneralFamily Medicine12/24/17documented as of this encounter
--- OUTSIDE RECORDS SUMMARY | 2025-03-12 05:50 | XMS_ITS ---
Author Organization [facility] Source Produ ction (ClinicalSummary Clone) Address Unknown Care Team Providers Care Gauge Machine Operator Name Role Phone Unavailable Primary Care Physician Unavailab le Results * [UNITY] CARRIER SCREEN Performed by: [facility] Component Value Range Date Sickle Cell Disease/Beta-Thalassemia/Hemoglobino pathies carrier screen NEGATIVE 01/30/2025 01:51 am UTCAlpha-Thalassemia carrier nlvehtCRVGDREG98/13/2025 01:51 am UTCCystic Fibrosis carrier ldfsamHSWXROVG00/13/2025 01:51 am UTCSpinal Muscular Atrophy carrier screenNEGATIVE 2 SMN1 copies, SNP not khntaah0501/30/2025 01:51 am UTCFor detailed report, see PDFSee PDF01/30/2025 01:51 am UTC 01/30/2025 01:51 am UT Social History Observation Value Start Date End Date
--- OUTSIDE RECORDS SUMMARY | 2025-03-12 05:50 | XMS_ITS | Clinical Summary ---
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 Take before meals.Active valACYclovir (Valtrex) 1 g tablet every 12 (twelve) hours02/08/2022ctive aspirin (ASPIR) 81 MG EC tablet Take 81 mg by mouth DailyActive Prenat MV-Min w/Pa-Ilthqr-ULD ( COMPLETE PO) Active metFORMIN XR (Glucophage-XR) 750 MG 24 hr tablet Take 750 mg by mouth in the evening. Take with meals03/03/2025Discontinued (Therapy completed) progesterone 50 MG/ML injection Inject 75 mg into the shoulder, thigh, or buttocks in the morning.10/28/2024 03/03/2025Discontinued(Therapy completed) estradiol (Estrace) 2 MG tablet Take 2 mg by mouth Daily03/03/2025Discontinued(Therapy completed) Active Problems ProblemNoted DateDiagnosed GjtoRvkunzpsxe52/09/2024Estimated Date of KtaedfmmHxxdefijHva91/21/2026Based on Ultrasound Encounters DateTypeDepartmentCare LhrbOvtxnhzayby65/15/2025 8:30 AM EDTRoutine [facility] WH[facility] [address] [place] [phone] Yenni Vazquez CNM Encounter for supervision of other normal , second trimester ([facility]) (Primary Dx); Hx of Dante thyroiditis; History of section; History of in vitro guqwksvieyhre27/15/2025[facility] flowsheet [facility] Springer OBGYKaitlin [address] [place] [phone] Yenni Vazquez CNM 03/02/20255783Ictxln49/11/2025 9:30 AM EDTRoutine PRECIOUS MCGARRYGYN [address] [place] [phone] Yenni Vazquez CNM History of in vitro fertilization (Primary Dx); Encounter for supervision of other normal , first trimester ([facility]); History of zlnuxnz2601/28/2025[facility] flowsheet [facility] WHITAKER [address] [place] [phone] eYnni Vazquez CNM 01/28/20257678Gcwzyo04/05/3853Woktze86/03/2025Telephone [facility] [address] [place] [phone] Meenakshi Brooks MD 01/20/2025linisync Result Encounter [facility] External Department Unsolicited Yenni Vazquez CNM 01/11/2025Results Follow-Up [facility] [place] [phone] Yenni Vazquez CNM US OB less than 14 weeks early01/06/2025 8:30 AM EDTInitial [facility]CIOUS [facility] [place] [phone] Yenni Vazquez CNM GA: 9w4d01/06/2025 8:15 AM EDTAncillary Procedure [facility] [phone] Encounter for care of first , first trimester ([facility]) 01/06/2025amboo flowsheet PRECIOUS MCGARRYMINDY [address] [place] [phone] Yenni Vazquez CNM 01/06/20254840Albddq83/17/8513Txyiap56/11/2025Orders Only [facility] [place] [phone] Gosia Hernandez MA Encounter for care of first , first trimester ([facility])from Last 3 Months Family History Medical HistoryRelationNameCommentsHypertensionFatherHypothyroidismFather RelationNameStatusCommentsFatherAliveMotherAlive Social History Tobacco UseTypesPacks/DayYears UsedDateSmoking Tobacco: NeverSmokeless Tobacco: Never Tobacco Cessation:Counseling Given: Not Answered Alcohol UseStandard Drinks/WeekCommentsNot Currently0 (1 standard drink = 0.6 oz pure alcohol)Estimated Date of NrjgqnbsRgdtezukEgt73/21/2026ased on UltrasoundSex and Gender InformationValueDate RecordedSex Assigned at Cilvlj2209/11/2023 1:30 AM EDTLegal OidFsalli55/15/2023 7:00 PM EDTGender Identity Udnuip0409/11/2023 1:30 AM EDTSexual OrientationNot on file Last Filed Vital Signs Vital SignReadingTime TakenCommentsBlood Ggjlnmfr534/7003/03/2025 8:28 AM EDT Pulse--Temperature--Respiratory Rate--Oxygen Saturation--Inhaled Oxygen Concentration--Kkcbbc699 kg (234 lb)03/03/2025 8:28 AM XHGHychrv867.6 cm (5' 1.25 )08/02/2022 12:00 PM EDTBody Mass Index43.85008/02/2022 12:00 PM EDT Plan of Treatment DateTypeDepartmentCare Team (Latest Contact Info)Trrbbftjytj39/12/2025 8:45 AM ESTRoutine [facility] Springer OBMINDY [address] [place] [phone] Yenni Vazquez CNM [address] [place], [place] [phone] Health MaintenanceDue DateLast DoneCommentsPap Smear2012Influenza Vaccine (#1)509/, 03/01/2020, 02/22/2016Cervical Cancer Screening 02/20/2026HPV/Okdevl8761 Goals GoalPatient Goal TypeAssociated ProblemsRecent ProgressPatient-Stated?Author Reminders Care PlanOB RemindersNoOpen Scheduling, Background Procedures Procedure NamePriorityDate/TimeAssociated DiagnosisCommentsTSH W/REFLEX TO FT4 Qpwgkzr3803/03/2025 8:51 AM EDT Hx of Dante thyroiditis BOX DLRIUqiflah83/03/2025 4:47 PM EDT CHLAMYDIA/N. GONORRHOEAE RNA, TMA, HMKIJHNKXICpotsuy54/20/2025 12:19 PM EDT examination or test, positive result ([facility]) URINALYSIS XAROPDILAAGBexouay21/20/2025 12:19 PM EDT examination or test, positive result ([facility]) DRUG TOX MONITORIGN 6 W/ CONF,EJZUCVzaovpn86/20/2025 12:19 PM EDT examination or test, positive result ([facility]) CULTURE, URINE, YDHQNPAYmrossh36/20/2025 12:19 PM EDT examination or test, positive result ([facility]) HEPATITIS C LPHMYMQJVrwagho94/20/2025 9:09 AM EDT examination or test, positive result ([facility]) ABO GROUP AND RH HCIMTpdtnvc96/20/2025 9:09 AM EDT examination or test, positive result ([facility]) HIV-1 AND HIV-2 RWAJFZGCRZGofuzmx70/20/2025 9:09 AM EDT examination or test, positive result ([facility]) TSH W/REFLEX TO QZ0Qcpclrf11/20/2025 9:09 AM EDT examination or test, positive result ([facility]) HEMOGLOBIN C3GGgfnpde95/20/2025 9:09 AM EDT examination or test, positive result ([facility]) RPR (DX) W/REFL TITER AND CONFIRMATORY ZLXNSSTUjytzjj75/20/2025 9:09 AM EDT examination or test, positive result ([facility]) ANTIBODY SCREEN, RBC W/REFL ID, TITER AND KMBoqjpvi09/20/2025 9:09 AM EDT examination or test, positive result ([facility]) TUTUbcfuaf63/20/2025 9:09 AM EDT examination or test, positive result ([facility]) RUBELLA AB (IGG), IMMUNE CITJEOZxldjqd61/20/2025 9:09 AM EDT examination or test, positive result ([facility]) HEPATITIS B SURFACE ANTIGEN W/REFL IQPADLCKubbjll45/20/2025 9:09 AM EDT examination or test, positive result ([facility]) US OB < 14 WEEKS DADGOIxcqajy46/20/2025 8:44 AM EDT Encounter for care of first , first trimester ([facility]) Q - THINPREP(R) TIS AND HPV MRNA E6/E7 RFL HPV 16,18/09Bsztfwf37/04/2021 from Last 3 Months or Most Recently Relevant to Health Maintenance Results * TSH W/REFLEX TO FT4 (03/03/2025 8:51 AM EDT) Only the most recent of2 resultswithin the time period is included. ComponentValueRef RangeTest MethodAnalysis TimePerformed AtPathologist Signature TSH W/REFLEX TO FT41.02mIU/LQUESTComment: ?Reference Range ? > or = 20 Years 0.40-4.50 ? Ranges ?First trimester ?0.26-2.66 ?Second trimester ?? 0.55-2.73 ?Third trimester ?0.43-2.91 Specimen (Source)Anatomical Location / LateralityCollection Method / Volume Collection TimeReceived Time03/03/2025 8:51 AM EDT1 3:39 PM EDT Narrative Resulting Agency Comment Performing Organization Information ?Site ID: QPT ?Name: [facility] ?Address: [address] [place] [address], [address] [place] [phone] ?Director: Jose Raul Villa MD Authorizing ProviderResult TypeResult StatusValerie Serena Whiteo CNMLAB BLOOD ORDERABLESFinal ResultPerforming OrganizationAddressCity/State/ZIP CodePhone Number [facility] * BOX TEST (01/20/2025 4:47 PM EDT)ComponentValueRef RangeTest MethodAnalysis TimePerformed AtPathologist SignatureBOX TEST SENT BHOGGFYIDAOBNX5LKHYLOGLCIS7 01/20/2025TBHSpecimen (Source)Anatomical Location / LateralityCollection Method / VolumeCollection TimeReceived Time01/20/2025 4:47 PM EDT01/20/2025 4:57 PM EDT Narrative CLINISYNC - 01/20/2025 5:00 PM EDT Authorizing ProviderResult TypeResult StatusValerie Serena Whiteo CNMLAB BLOOD ORDERABLESFinal ResultPerforming OrganizationAddressCity/State/ZIP CodePhone Number CLINISYNC [facility] * (ABNORMAL) URINALYSIS MICROSCOPIC (01/06/2025 12:19 PM EDT)ComponentValueRef RangeTest MethodAnalysis TimePerformed AtPathologist NeeeditwxBNB16-45(A)< OR = 5 /HPFQUESTRBCNONE SEEN< OR = 2 /HPFQUESTSQUAMOUS EPITHELIAL ABUPT85-06(A)< OR = 5 /HPFQUESTBACTERIAFEW(A)NONE SEEN /HPFQUESTHYALINE CASTNONE SEENNONE SEEN /LPFQUESTNOTEQUESTComment: This urine was analyzed for the presence of WBC, RBC, bacteria, casts, and other formed elements. Only those elements seen were reported. Specimen (Source)Anatomical Location / LateralityCollection Method / Volume Collection TimeReceived Time01/06/2025 12:19 PM EDT01/07/2025 4:28 AM EDT Narrative Resulting Agency Comment Performing Organization Information ?Site ID: QPT ?Name: [facility] ?Address: [address] [place] [address], [address] [place] [phone] ?Director: Jose Raul Villa MD Authorizing ProviderResult TypeResult StatusValerichika Vazquez CNAB BLOOD ORDERABLESFinal ResultPerforming OrganizationAddressCity/State/ZIP CodePhone Number [facility] * DRUG TOX MONITORIGN 6 W/ CONF,URINE (01/06/2025 12:19 PM EDT)ComponentValueRef RangeTest MethodAnalysis TimePerformed AtPathologist SignatureAMPHETAMINES NEGATIVE<500 ng/mLQUESTBARBITURATESNEGATIVE<300 ng/mLQUESTBENZODIAZEPINES NEGATIVE<100 ng/mLQUESTCOCAINE METABOLITESNEGATIVE<150 ng/mLQUESTMARIJUANA METABOLITE 20NEGATIVE<20 ng/mLQUESTMETHADONE METABOLITENEGATIVE<100 ng/mLQUEST OPIATESNEGATIVE<100 ng/mLQUESTOXYCODONENEGATIVE<100 ng/mLQUESTPHENCYCLIDINE NEGATIVE<25 ng/mLQUEST(ALWAYS MESSAGE)QUESTComment: See Note 1 Note 1 This drug testing is for medical treatment only. ?? Analysis was performed as non-forensic testing and these results should be used only by healthcare providers to render diagnosis or treatment, or to monitor progress of medical conditions. For assistance with interpreting these drug results, please contact a [facility] Toxicology Specialist: [phone] ( ), M-F, 8am-6pm EST. Specimen (Source)Anatomical Location / LateralityCollection Method / Volume Collection TimeReceived Time01/06/2025 12:19 PM EDT01/07/2025 4:28 AM EDT Narrative Resulting Agency Comment Performing Organization Information ?Site ID: QPT ?Name: [facility] ?Address: [address] [place] [address], [address] [place] [address] ?Director: Jose Raul Villa MD Authorizing ProviderResult TypeResult StatusValerie Serena Whiteo CNMLAB BODY FLUIDS AND STOOLS ORDERABLESFinal ResultPerforming OrganizationAddressCity/State/ZIP CodePhone Number [facility] * C. trachomatis / N. gonorrhoeae, DNA probe (01/06/2025 12:19 PM EDT)Component ValueRef RangeTest MethodAnalysis TimePerformed AtPathologist Signature CHLAMYDIA TRACHOMATIS RNA, TMA, UROGENITALNOT DETECTEDNOT DETECTEDQUEST NEISSERIA GONORRHOEAE RNA, TMA, UROGENITALNOT DETECTEDNOT DETECTEDQUEST(ALWAYS MESSAGE)QUESTComment: The analytical performance characteristics of this assay, when used to test SurePath(TM) specimens have been determined by [facility]. The modifications have not been cleared or approved by the FDA. This assay has been validated pursuant to the CLIA regulations and is used for clinical purposes. For additional information, please refer to https://education.Simple [employer]/faq/HND922 (This link is being provided for information/ educational purposes only.) Specimen (Source)Anatomical Location / LateralityCollection Method / Volume Collection TimeReceived TimeSwabUrine specimen obtained by clean catch procedure / Ovmscei1401/06/2025 12:19 PM EDT01/07/2025 4:28 AM EDT Narrative Resulting Agency Comment Performing Organization Information ?Site ID: QPT ?Name: [facility] ?Address: [address] [place] [address], [address] [place] [phone] ?Director: Jose Raul Villa MD Authorizing ProviderResult TypeResult StatusValerichika Serena Whiteo CNMLAB PATHOLOGY ORDERABLESFinal ResultPerforming OrganizationAddressty/State/ZIP CodePhone Number [facility] * Urine culture (01/06/2025 12:19 PM EDT)ComponentValueRef RangeTest Method Analysis TimePerformed AtPathologist SignatureMICRO [id number] SPECIMEN QUALITYAdequateQUESTSOURCE: (QUEST)URINEQUESTSTATUSFINALQUESTRESULT SEE NOTEQUESTComment: Mixed genital dinora isolated. These superficial bacteria are not indicative of a urinary tract infection. No further organism identification is warranted on this specimen. If clinically indicated, recollect clean-catch, mid-stream urine and transfer immediately to Urine Culture Transport Tube. Specimen (Source)Anatomical Location / LateralityCollection Method / Volume Collection TimeReceived TimeUrineUrine specimen obtained by clean catch procedure / Moailts6101/06/2025 12:19 PM EDT01/07/2025 4:28 AM EDT Narrative Resulting Agency Comment Performing Organization Information ?Site ID: QPT ?Name: [facility] ?Address: [address] [place] [phone] ?Director: Jose Raul Villa MD Authorizing ProviderResult TypeResult StatusValegayla Vazquez CNMLAB MICROBIOLOGY - GENERAL ORDERABLESFinal ResultPerforming OrganizationAddressCity/State/ZIP CodePhone Number [facility] * Hepatitis C antibody (01/06/2025 9:09 AM EDT)ComponentValueRef RangeTest MethodAnalysis TimePerformed AtPathologist SignatureHEPATITIS C ANTIBODY RCJ-BECVLAMBSSJ-MRGCSTNQZERGTWnmyjyk: HCV antibody was non-reactive. There is no laboratory evidence of HCV infection. In most cases, no further action is required. However, if recent HCV exposure is suspected, a test for HCV RNA (test code 30072) is suggested. For additional information please refer to http://education.RedCap.[employer]/faq/LDK49o9 (This link is being provided for informational/ educational purposes only.) Specimen (Source)Anatomical Location / LateralityCollection Method / Volume Collection TimeReceived TimeBloodVenous blood specimen / Jvggutn2201/06/2025 9:09 AM EDT01/06/2025 4:08 PM EDT Narrative [facility] - 01/07/2025 2:43 PM EDT COLLECTION KIT GIVEN TO PATIENT. PATIENT ADVISED TO RETURN. Resulting Agency Comment Performing Organization Information ?Site ID: QPT ?Name: [facility] ?Address: [facility] , [address] [place], [place] [phone] ?Director: Jose Raul Villa MD Authorizing ProviderResult TypeResult StatusValerie Serena Whiteo CNMLAB BLOOD ORDERABLESFinal ResultPerforming OrganizationAddressty/State/ZIP CodePhone Number [facility] * ABO/Rh (01/06/2025 9:09 AM EDT)ComponentValueRef RangeTest MethodAnalysis Time Performed AtPathologist SignatureABO GROUPAQUESTRH TYPERH(D) POSITIVEQUEST Comment: For additional information, please refer to http://education.[employer]/faq/SLD926 (This link is being provided for informational/ educational purposes only.) Specimen (Source)Anatomical Location / LateralityCollection Method / Volume Collection TimeReceived TimeBloodVenous blood specimen / Zinrzki8901/06/2025 9:09 AM EDT01/06/2025 4:08 PM EDT Narrative [facility] - 01/07/2025 2:43 PM EDT COLLECTION KIT GIVEN TO PATIENT. PATIENT ADVISED TO RETURN. Resulting Agency Comment Performing Organization Information ?Site ID: QPT ?Name: [facility] ?Address: [address] [place] [address], [address] [place], [place] [phone] ?Director: Jose Raul Villa MD Authorizing ProviderResult TypeResult StatusValerie Serena Whiteo CNMLAB BLOOD ORDERABLESFinal ResultPerforming OrganizationAddressty/[facility]/ZIP CodePhone Number [facility] * Rubella antibody, IgG (01/06/2025 9:09 AM EDT)ComponentValueRef RangeTest MethodAnalysis TimePerformed AtPathologist SignatureRUBELLA AB (IGG), IMMUNE STATUS1.89IndexQUESTComment: ?Index ?Interpretation ?----- ? <0.90 Not consistent with immunity ?0.90-0.99 ?Equivocal > or = 1.00 Consistent with immunity The presence of rubella IgG antibody suggests immunization or past or current infection with rubella virus. Specimen (Source)Anatomical Location / LateralityCollection Method / Volume Collection TimeReceived TimeBloodVenous blood specimen / Kfyzlwx8901/06/2025 9:09 AM EDT01/06/2025 4:08 PM EDT Narrative [facility] - 01/07/2025 2:43 PM EDT COLLECTION KIT GIVEN TO PATIENT. PATIENT ADVISED TO RETURN. Resulting Agency Comment Performing Organization Information ?Site ID: QPT ?Name: [facility] ?Address: [address] [place] [address], [address] [place] [address] ?Director: Jos eRaul Villa MD Authorizing ProviderResult TypeResult StatusValemachika Whiteo CNAB BLOOD ORDERABLESFinal ResultPerforming OrganizationAddGood [facility] CodePhone Number [facility] * RPR (01/06/2025 9:09 AM EDT)ComponentValueRef RangeTest MethodAnalysis Time Performed AtPathologist SignatureRPR (MONITOR) W/REFL TITERNON-REACTIVE NON-REACTIVEQUESTSpecimen (Source)Anatomical Location / LateralityCollection Method / VolumeCollection TimeReceived TimeBloodVenous blood specimen / Gwgnjws9201/06/2025 9:09 AM EDT01/06/2025 4:08 PM EDT Narrative [facility] - 01/07/2025 2:43 PM EDT COLLECTION KIT GIVEN TO PATIENT. PATIENT ADVISED TO RETURN. Resulting Agency Comment Performing Organization Information ?Site ID: QPT ?Name: [facility] ?Address: [address] [place] [address], [address] [place] [address] ?Director: Jose Raul Villa MD Authorizing ProviderResult TypeResult StatusValeri Serena Whiteo CNMLAB BLOOD ORDERABLESFinal ResultPerforming OrganizationAddSharon Regional Medical Centerty/State/ZIP CodePhone Number [facility] * HIV-1 and HIV-2 antibodies (01/06/2025 9:09 AM EDT)ComponentValueRef RangeTest MethodAnalysis TimePerformed AtPathologist SignatureHIV FINAL INTERPRETATION QUESTComment: HIV Negative HIV-1 antigen and HIV-1/HIV-2 antibodies were not detected. There is no laboratory evidence of HIV infection. HIV AG/AB, 4TH NBUIHF-NWNSTNCMVHB-BTWFIIVHUWMLZFkldwlry (Source)Anatomical Location / LateralityCollection Method / VolumeCollection TimeReceived TimeBlood Venous blood specimen / Nloiwfn5101/06/2025 9:09 AM EDT01/06/2025 4:08 PM EDT Narrative [facility] - 01/07/2025 2:43 PM EDT COLLECTION KIT GIVEN TO PATIENT. PATIENT ADVISED TO RETURN. Resulting Agency Comment Performing Organization Information ?Site ID: QPT ?Name: [facility] ?Address: [address] [place] [address], [address] [place], [place] [phone] ?Director: Jose Raul Villa MD Authorizing ProviderResult TypeResult StatusValeconemaugh miners medical center Serena White CNAB BLOOD ORDERABLESFinal ResultPerforming OrganizationAddressty/[facility] CodePhone Number [facility] * Hepatitis B surface antigen (01/06/2025 9:09 AM EDT)ComponentValueRef Range Test MethodAnalysis TimePerformed AtPathologist SignatureHEPATITIS B SURFACE FIEXKOTVIL-YXEDUBPTFXP-HIVWYTDRDQWJCTclwolm: For additional information, please refer to http://education.RedCap.[employer]/faq/YKF549 (This link is being provided for informational/ educational purposes only.) Specimen (Source)Anatomical Location / LateralityCollection Method / Volume Collection TimeReceived TimeBloodVenous blood specimen / Jmnbvsi7501/06/2025 9:09 AM EDT01/06/2025 4:08 PM EDT Narrative [facility] - 01/07/2025 2:43 PM EDT COLLECTION KIT GIVEN TO PATIENT. PATIENT ADVISED TO RETURN. Resulting Agency Comment Performing Organization Information ?Site ID: QPT ?Name: [facility] ?Address: [address] [place] [address], [address] [place] [address] ?Director: Jose Raul Villa MD Authorizing ProviderResult TypeResult StatusValerie Serena Whiteo CNMLAB BLOOD ORDERABLESFinal ResultPerforming OrganizationAddressty/[facility]/ZIP CodePhone Number [facility] * CBC (01/06/2025 9:09 AM EDT)ComponentValueRef RangeTest MethodAnalysis Time Performed AtPathologist SignatureWHITE BLOOD CELL COUNT8.13.8 - 10.8 Thousand/uLQUESTRED BLOOD CELL COUNT4.643.80 - 5.10 Million/uLQUESTHEMOGLOBIN 13.811.7 - 15.5 g/dQRQFVNUSUPHTRCEM71.135.0 - 45.0 %DLZYUCYT26.780.0 - 100.0 qOJMDKBOCE40.727.0 - 33.0 itMVESBNFLU13.832.0 - 36.0 g/dLQUESTComment: For adults, a slight decrease in the calculated MCHC value (in the range of 30 to 32 g/dL) is most likely not clinically significant; however, it should be interpreted with caution in correlation with other red cell parameters and the patient's clinical condition. RDW13.011.0 - 15.0 %QUESTPLATELET BBDBE920118 - 400 Thousand/iHVBTGEMQV75.67.5 - 12.5 fLQUESTSpecimen (Source)Anatomical Location / LateralityCollection Method / VolumeCollection TimeReceived TimeBloodVenous blood specimen / Bcuvsmw8901/06/2025 9:09 AM EDT01/06/2025 4:08 PM EDT Narrative [facility] - 01/07/2025 2:43 PM EDT COLLECTION KIT GIVEN TO PATIENT. PATIENT ADVISED TO RETURN. Resulting Agency Comment Performing Organization Information ?Site ID: QTW ?Name: [facility] ?Address: [address] [place] [phone] ?Director: Jojo Forman Authorizing ProviderResult TypeResult StatusValegayla Vazquez [facility] BLOOD ORDERABLESFinal ResultPerforming OrganizationAddressCity/State/ZIP CodePhone Number [facility] * Antibody screen (01/06/2025 9:09 AM EDT)ComponentValueRef RangeTest Method Analysis TimePerformed AtPathologist SignatureANTIBODY SCREEN, RBC W/REFL ID, TITER AND AGNO ANTIBODIES DETECTEDQUESTComment: ?Reference range ?No antibodies detected This assay is a screening test for the detection of red blood cell antibodies. The test is not to be used for pretransfusion screening or for the medical management of an alloimmunized . ? Specimen (Source)Anatomical Location / LateralityCollection Method / Volume Collection TimeReceived TimeBloodVenous blood specimen / Mlnstrb7801/06/2025 9:09 AM EDT01/06/2025 4:08 PM EDT Narrative [facility] - 01/07/2025 2:43 PM EDT COLLECTION KIT GIVEN TO PATIENT. PATIENT ADVISED TO RETURN. Resulting Agency Comment Performing Organization Information ?Site ID: QPT ?Name: [facility] ?Address: [address] [place] [address], [address] [place] [phone] ?Director: Jose Raul Villa MD Authorizing ProviderResult TypeResult StatusValegayla Vazquez CNMLAB BLOOD ORDERABLESFinal ResultPerforming OrganizationAddressCity/State/ZIP CodePhone Number [facility] * Hemoglobin A1c (01/06/2025 9:09 AM EDT)ComponentValueRef RangeTest Method Analysis TimePerformed AtPathologist SignatureHemoglobin A1C5.4<5.7 %QUEST Comment: For the purpose of screening for the presence of diabetes: <5.7% Consistent with the absence of diabetes 5.7-6.4% ?Consistent with increased risk for diabetes ?(prediabetes) > or =6.5% Consistent with diabetes This assay result is consistent with a decreased risk of diabetes. Currently, no consensus exists regarding use of hemoglobin A1c for diagnosis of diabetes in children. According to [place] [employer] (ADA) guidelines, hemoglobin A1c <7.0% represents optimal control in non- diabetic patients. Different metrics may apply to specific patient populations. Standards of Medical Care in Diabetes(ADA). ?? Specimen (Source)Anatomical Location / LateralityCollection Method / Volume Collection TimeReceived TimeBloodVenous blood specimen / [id number]/06/2025 9:09 AM EDT01/06/2025 4:08 PM EDT Narrative [facility] - 01/07/2025 2:43 PM EDT COLLECTION KIT GIVEN TO PATIENT. PATIENT ADVISED TO RETURN. Resulting Agency Comment Performing Organization Information ?Site ID: QPT ?Name: [facility] ?Address: [address] [place], [place] [address] , [address] [place] [address] ?Director: Jose Raul Villa MD Authorizing ProviderResult TypeResult StatusValerichika Vazquez CNMLAB BLOOD ORDERABLESFinal ResultPerforming OrganizationAddressCity/State/ZIP CodePhone Number [facility] * US OB less than 14 weeks early (01/06/2025 8:44 AM EDT)Anatomical Region LateralityModalityBodyUltrasoundSpecimen (Source)Anatomical Location / LateralityCollection Method / VolumeCollection TimeReceived Time01/06/2025 3:43 PM EDT Impressions 01/07/2025 9:31 AM EDT Findings consistent with a live intrauterine gestation, current sonographic age of 9 weeks and 3 days resulting in an estimated date of delivery of August 08, 2025. TRANSCRIBED BY: ? ELECTRONICALLY SIGNED BY: Ray Coello MD Narrative 01/07/2025 9:31 AM EDT FINDINGS: A single intrauterine gestational sac is present. (Normal decidual reaction, sac located within themidline fundus within a retroverted uterus) ??No subchorionic hemorrhage. ??A single pole is present. Normal heart rate at 158 beats per minute. ??Yolk sac also is seen. ?? Current sonographic age is 9 weeks and 3 days based on the crown-rump length measurement of 2.7 cm. ??Based on this age, current estimated date of delivery is August 08, 2025 ??No pelvic fluid or adnexal mass present. ??Cervical length is 3.2 cm. Procedure Note Ray Coello MD - 01/07/2025 FINDINGS: A single intrauterine gestational sac is present. (Normal decidualreaction, sac located within the midline fundus within a retroverteduterus) No subchorionic hemorrhage. A single pole is present.Normal heart rate at 158 beats per minute. Yolk sac also is seen.Current sonographic age is 9 weeks and 3 days based on the crown-rumplength measurement of 2.7 cm. Based on this age, current estimated dateof delivery is August 08, 2025 No pelvic fluid or adnexal mass present.Cervical length is 3.2 cm. IMPRESSION: Findings consistent with a live intrauterine gestation, currentsonographic age of 9 weeks and 3 days resulting in an estimated date ofdelivery of August 08, 2025. TRANSCRIBED BY: ELECTRONICALLY SIGNED BY: Ray Coello MD Authorizing ProviderResult TypeResult StatusValegayla Serena Cindyriana [facility] OB US PROCEDURESFinal Result * Q - THINPREP(R) TIS AND HPV MRNA E6/E7 RFL HPV 16,18/45 (02/20/2021)Component ValueRef RangeTest MethodAnalysis TimePerformed AtPathologist Signature CLINICAL INFORMATION:None givenNOMS LEGACY EXTERNAL LABLMP:NONE GIVENNOMS LEGACY EXTERNAL LABPREV. PAP:NONE GIVENNOMS LEGACY EXTERNAL LABPREV. BX:NONE GIVENNOMS LEGACY EXTERNAL LABSOURCE:None givenN[facility] STATEMENT OF ADEQUACY:SEE NOTENOMS LEGACY EXTERNAL LABComment: Satisfactory for evaluation. Endocervical/transformation zone component present. INTERPRETATION/RESULT:Negative for intraepithelial lesion or malignancy.[facility] LABINFECTION:Shift in vaginal dinora suggestive of bacterial vaginosis.[facility] LABCOMMENT:This Pap test has been evaluated with computer assisted technology.[facility] LABCYTOTECHNOLOGIST:SEE NOTE [facility] EXTER[facility] LABComment: , CT(ASCP) CT screening location: [place] [address]. COMMENTSEE NOTENOMS LEGACY EXTERNAL LABComment: EXPLANATORY NOTE: The Pap is a screening test for cervical cancer. It is not a diagnostic test and is subject to false negative and false positive results. It is most reliable when a satisfactory sample, regularly obtained, is submitted with relevant clinical findings and history, and when the Pap result is evaluated along with historic and current clinical information. HPV MRNA E6/E7Not DetectedNot DetectedNOMS LEGACY EXTERNAL LABComment: Methodology: Manager Property-Mediated Amplification This assay detects E6/E7 viral messenger RNA (mRNA) from 14 high-risk HPV types (16,18,31,33,35,39,45,51,52,56,58,59,66,68). The analytical performance characteristics of this assay have been determined by [facility]. The modifications have not been cleared or approved by the FDA. This assay has been validated pursuant to the CLIA regulations and is used for clinical purposes. For additional information, please refer to http://education.[employer].com/faq/MKA986v0 (This link if provided for information/ educational purposes only.) Specimen (Source)Anatomical Location / LateralityCollection Method / Volume Collection TimeReceived Time02/20/2021 Narrative Authorizing ProviderResult TypeResult StatusValerie Serena Vazquez CNMECW LABSFinal ResultPerforming OrganizationAddressCity/State/ZIP CodePhone Number [facility] from Last 3 Months or Most Recently Relevant to Health Maintenance Additional Health Concerns Active ProblemsNoted DateDiagnosed DateOB Fprydctfz51/20/2025 [place] [address] Care Teams Team MemberRelationshipSpecialtyStart DateEnd Meenakshi Brooks MD [address] [place] [address] PCP - GeneralFamily Medicine09/25/22
--- OUTSIDE RECORDS SUMMARY | 2025-03-12 05:50 | XMS_ITS ---
Author Organization [facility] Source Produ ction (ClinicalSummary Clone) Address Unknown Care Team Providers Care Storehouse Clerk Name Role Phone Unavailable Primary Care Physician Unavailab le Results * [UNITY] ANEUPLOIDY NIPT Performed by: [facility] Component Value Range Date Fraction 3.1% 01/27/2025 07:05 am [id number] MicrodeletionLOW RISK <1 in 07:05 am UTCSex Chromosome AneuploidyNOT JXZEMJFN08/10/2025 07:05 am UTCMonosomy XLOW RISK <1 in 07:05 am UTCTrisomy 13LOW RISK <1 in 10,000 01/27/2025 07:05 am UTCTrisomy 18LOW RISK <1 in , 07:05 am UTC Trisomy 21LOW RISK <1 in , 07:05 am UTCFetal IizWREZOC06/10/2025 07:05 am UTCPregnancy UiihgdbeeRQEXTRJLT76/10/2025 07:05 am UTCFor detailed report, see PDFSee PDF01/27/2025 07:05 am UTC01/27/2025 07:05 am UTC Social History Observation Value Start Date End Date
[2025-03-12 06:27] LABS: SARS-CoV-2 Ag NEGATIVE (NEGATIVE)
[2025-03-12 07:08] VITALS: BP 141/87; PULSE 78; O2SAT 100
== END 2025-03-12 07:09 | disposition home or self-care (01) ==
PROVIDERS: Emergency Provider Emergency Medicine; PCP Family Medicine
DX: O99.512 Diseases of the respiratory system complicating pregnancy, second trimester (principal); J06.9 Acute upper respiratory infection, unspecified; Z3A.19 19 weeks gestation of pregnancy
CPT/HCPCS: 87811; 94640; 99283